=== PATIENT | male | born 2000 | race Caucasian/White ===

== ENCOUNTER 2020-04-20 02:21 | Emergency (ER) | payer BC, MEDICAID ==
--- NOTE | 2020-04-20 02:46 | EDM.PDOC ---
ED HPI GENERAL MEDICAL PROBLEM - General Chief Complaint: Upper Extremity Injury/Pain Stated Complaint: FELL, LT ARM PAIN Time Seen by Provider: 04/20/20 02:28 - History of Present Illness INITIAL COMMENTS - FREE TEXT/NARRATIVE: History of present illness: [] The patient got intoxicated and fell. He injured his left upper extremity. He says "I cannot move my left arm". The patient has no other injury except a feeling of a contusion to the left knee. He is ambulatory no acute distress. Review of systems: As per history of present illness and below otherwise all systems reviewed and negative. Past medical history: As per history of present illness and as reviewed below otherwise noncontributory. Surgical history: As per history of present illness and as reviewed below otherwise noncontributory. Social history: No reported history of drug or alcohol abuse. Family history: As per history of present illness and as reviewed below otherwise noncontributory. Physical exam: Constitutional - well developed, well-nourished and in no acute distress HEENT - normocephalic, no evidence of trauma - external nose and mouth normal - no mass in neck and no JVD - mucosae moist EYES - full EOM, PERRL, no icterus - no evidence of inflammation, injection, or drainage Respiratory - no respiratory distress, equal bilateral expansion, lungs clear to auscultation and no abnormal lung sounds Cardiovascular - Regular Rhythm with S1 and S2 appreciated and no murmur, gallop or rub. Peripheral pulses symmetrically normal in all four extremities GI - abdomen soft without distension or organomegaly - normal bowel sounds - no guard or rebound Musculoskeletal nontender neck with normal range of motion nontender left shoulder with normal range of motion tenderness at the left elbow with swelling and an incision from where he had a prior surgery at age 8. Tenderness of the left wrist including the anatomic snuffbox otherwise no gross deformity of long bones or joints - no tenderness, swelling or edema Neurologic - Alert and oriented times four - CN II-XII grossly intact - motor sensory and coordination symmetrically normal Psychiatric - appropriate mood and affect with normal thought content Hematologic - No petechiae or purpura - mucosa appropriate color and sclera not pale - normal nail bed color and refill Integument - no rash or evidence of trauma - normal turgor Diagnostics: [] Therapeutics: [] Impression: [] Plan: [] Definitive disposition and diagnosis as appropriate pending reevaluation and review of above. L arm Pain Score (Numeric/FACES): 7 - Related Data Allergies Allergy/AdvReac Type Severity Reaction Status Date / Time No Known Allergies Allergy Verified 04/20/20 02:35 Home Meds: Home Meds Acetaminophen/HYDROcodone [[place] 325-7.5 MG] 1 tab PO Q4H PRN #14 tab 04/20/20 [Rx] Past Medical History Musculoskeletal History: Reports: None - Past Surgical History Other Musculoskeletal Surgeries/Procedures:: left arm repair with pins/ removed Social & Family History - Family History Family Medical History: Noncontributory - Tobacco Use Smoking Status *Q: Current Every Day Smoker Years of Tobacco use: 5 Packs/Tins Daily: 0.5 - Caffeine Use Caffeine Use: Reports: Coffee, Energy Drinks - Recreational Drug Use Recreational Drug Use: No Review of Systems - Review of Systems Review Of Systems: Comprehensive ROS is negative, except as noted in HPI. ED EXAM, GENERAL - Physical Exam Exam: See Below Free Text/Narrative:: My physical exam is in the HPI Course - Vital Signs Text/Narrative:: Left wrist x-rays are unremarkable but the exam is consistent with a possible occult scaphoid bone fracture. Left elbow x-rays show a fragment of the radius that is broken off but not necessarily intra-articular. It is however at risk of migrating intra-articular. The wrist will be splinted with a thumb spica Velcro splint and the elbow immobilized in 90 degrees. Patient referred to orthopedics for follow-up. Vascular integrity verified after splint application Last Recorded V/S: Last Vital Signs Temp 97.1 F 04/20/20 02:28 Pulse 105 H 04/20/20 02:28 Resp 20 04/20/20 02:28 BP 144/85 H 04/20/20 02:28 Pulse Ox 95 04/20/20 02:28 - Orders/Labs/Meds Orders: Active Orders 24 hr Category Date Time Status DME for Discharge [COMM] Stat Oth 04/20/20 03:35 Ordered Departure - Departure Time of Disposition: 03:50 Disposition: Home, Self-Care 01 Condition: Good Clinical Impression: Fracture of radius, Scaphoid fracture of wrist - Discharge Information Prescriptions: Acetaminophen/HYDROcodone [[place] 325-7.5 MG] 1 tab PO Q4H PRN #14 tab PRN Reason: Pain Instructions: Radial Fracture Referrals: PCP,None [Primary Care Provider] - Forms: ED Department Discharge Additional Instructions: The following information is given to patients seen in the emergency department who are being discharged to home. This information is to outline your options for follow-up care. We provide all patients seen in our emergency department with a follow-up referral. The need for follow-up, as well as the timing and circumstances, are variable depending upon the specifics of your emergency department visit. If you don't have a primary care physician on staff, we will provide you with a referral. We always advise you to contact your personal physician following an emergency department visit to inform them of the circumstance of the visit and for follow-up with them and/or the need for any referrals to a consulting specialist. The emergency department will also refer you to a specialist when appropriate. This referral assures that you have the opportunity for follow-up care with a specialist. All of these measure are taken in an effort to provide you with optimal care, which includes your follow-up. Under all circumstances we always encourage you to contact your private physician who remains a resource for coordinating your care. When calling for follow-up care, please make the office aware that this follow-up is from your recent emergency room visit. If for any reason you are refused follow-up, please contact the [facility] Emergency Department at and asked to speak to the emergency department charge nurse. [facility] [address], [address] [place] [address] Sepsis Event Note (ED) - Evaluation Sepsis Screening Result: No Definite Risk - Focused Exam Vital Signs: Vital Signs Temp Pulse Resp BP Pulse Ox 04/20/20 02:28 97.1 F 105 H 20 144/85 H 95 - My Orders Last 24 Hours: My Active Orders 04/20/20 03:35 DME for Discharge [COMM] Stat - Assessment/Plan Last 24 Hours: My Active Orders 04/20/20 03:35 DME for Discharge [COMM] Stat
--- NOTE | 2020-04-20 03:34 | CR ---
Indication: Injury Technique: Three views Comparison: None Findings: There is a fracture of the dorsal aspect of the left radial head with the fragment displaced 7 millimeters laterally and 6 millimeters distally. There is associated volar and medial subluxation/near dislocation at the radial capitellar joint. No significant elbow effusion. Soft tissues unremarkable. Dictated by Cong Pressley MD @ Apr 20 2020 3:30AM Signed by Dr. Cong Pressley @ Apr 20 2020 3:32AM
--- NOTE | 2020-04-20 03:35 | CR ---
Indication: Injury Technique: Three views Comparison: None Findings: Bones: Alignment is normal. No fractures or bone lesions. Joint spaces: Unremarkable. Soft tissues: Unremarkable. Dictated by Cong Pressley MD @ Apr 20 2020 3:33AM Signed by Dr. Cong Pressley @ Apr 20 2020 3:34AM
[2020-04-20 04:21] VITALS: BP 137/73; PULSE 110
== END 2020-04-20 04:22 | disposition home or self-care (01) ==
LOC: MW.ED 02:21
DX: S52.122A Displaced fracture of head of left radius, initial encounter for closed fracture (principal); S62.002A Unspecified fracture of navicular [scaphoid] bone of left wrist, initial encounter for closed fracture; F17.210 Nicotine dependence, cigarettes, uncomplicated; W19.XXXA Unspecified fall, initial encounter
CPT/HCPCS: 29105; 73080-26-LT; 73080-LT; 73110-26-LT; 73110-LT; 99283; 99284-25